=== PATIENT | male | born 1970 | race Caucasian/White ===

== ENCOUNTER 2018-11-14 10:33 | Emergency (ER) | payer OTHER | END 2018-11-14 13:40 | disposition short-term general hospital (02) | LOC: ED 10:33 | PROC: 0HQ0XZZ Repair Scalp Skin, External Approach (ICD-10-PCS; principal; 2018-11-14) | PROC: 0HQ1XZZ Repair Face Skin, External Approach (ICD-10-PCS; 2018-11-14) | DX: S32.401A Unspecified fracture of right acetabulum, initial encounter for closed fracture (principal); S72.001A Fracture of unspecified part of neck of right femur, initial encounter for closed fracture; S01.02XA Laceration with foreign body of scalp, initial encounter; S01.82XA Laceration with foreign body of other part of head, initial encounter; M25.532 Pain in left wrist; V89.2XXA Person injured in unspecified motor-vehicle accident, traffic, initial encounter | CPT/HCPCS: 12004; 12011; 70450; 71045; 72125; 72170; 73110; 73502; 74177; 80053; 82150; 82550; 83690; 85025; 86850; 86900; 86901; 86920; 99285-25; G0480; Q9967 ==